=== PATIENT | female | born 1950 | race Caucasian/White ===

== ENCOUNTER 2018-11-19 13:04 | Emergency (ER) | payer OTHER ==
[~2018-11-19] VITALS: Ht 162.6 cm; Wt 63.5 kg
[~2018-11-19 13:04] MED LIST: CYCL10 PO; Super Energy1 EACH PO; TRAM50 PO
[2018-11-19] MEDS ORDERED: CYCL10 PO (15:40)
== END 2018-11-19 15:50 | disposition home or self-care (01) ==
LOC: ER 13:04
DX: M25.551 Pain in right hip (principal); W18.30XA Fall on same level, unspecified, initial encounter; Z88.8 Allergy status to other drugs, medicaments and biological substances; Z88.5 Allergy status to narcotic agent; Z91.018 Allergy to other foods; Z79.899 Other long term (current) drug therapy
CPT/HCPCS: 72192; 73502; 96374; 96375; 99284-25; J2405; J3010

== ENCOUNTER 2020-07-24 13:56 | Inpatient (IN) | payer MEDICARE, OTHER ==
[~2020-07-24] VITALS: Ht 172.7 cm; Wt 56.7 kg
[2020-07-24 15:49] LABS: BASOPHILS ABSOLUTE AUTO 0.05 K/mm3 (0.00-0.23); BASOPHILS PERCENT AUTO 1 % (0-2); EOSINOPHILS ABSOLUTE AUTO 0.04 K/mm3 (0.00-0.68); EOSINOPHILS PERCENT AUTO 0 % (0-6); Hematocrit 37.9 % (33.0-51.0); Hemoglobin 12.4 g/dL (11.5-16.0); IMMATURE GRAN ABSOLUTE AUTO 0.05 K/mm3 (0.00-0.10); IMMATURE GRAN PERCENT AUTO 1 % (0-1); LYMPHOCYTES ABSOLUTE AUTO 0.86 K/mm3 (0.84-5.20); LYMPHOCYTES PERCENT AUTO 8 % (21-46); MONOCYTES ABSOLUTE AUTO 0.46 K/mm3 (0.16-1.47); MONOCYTES PERCENT AUTO 4 % (4-13); Mean Corpuscular HGB 28.8 pg (26.0-34.0); Mean Corpuscular HGB Conc 32.7 g/dL (31.5-36.5); Mean Corpuscular Volume 88 fL (80-100); Mean Platelet Volume 11.7 fL (9.1-12.4); NEUTROPHILS ABSOLUTE AUTO 9.57 K/mm3 (1.96-9.15); NEUTROPHILS PERCENT AUTO 87 % (41-73); Platelet Count 215 K/mm3 (150-400); RDW Standard Deviation 42.1 fL (35.1-46.3); Red Blood Cell Count 4.31 M/mm3 (3.80-5.20); White Blood Cell Count 11.03 K/mm3 (4.00-11.30)
[2020-07-24 16:00] LABS: Alanine Aminotransfer (ALT/SGP 23 U/L (12-78); Albumin, Blood 3.6 g/dL (3.4-5.0); Albumin/Globulin Ratio 1.1 (0.8-1.8); Alk Phos 84 U/L (50-136); Anion Gap 5 mmol/L (6-16); Aspartate Aminotrans (AST/SGOT 21 U/L (12-37); Bilirubin, Total 0.5 mg/dL (0.1-1.0); Blood Urea Nitrogen 8 mg/dL (8-24); Bun/Creatinine Ratio 10.3 (12.0-20.0); CO2, Blood 29 mmol/L (21-32); Calcium, Blood 8.5 mg/dL (8.5-10.1); Chloride, Blood 105 mmol/L (98-108); Creatinine, Blood 0.78 mg/dL (0.40-1.00); Globulin, Blood 3.2 g/dL (2.2-4.0); Glomerular Filtration Rate >60 (60-); Glucose, Blood 136 mg/dL (70-99); Potassium, Blood 2.7 mmol/L (3.5-5.5); Sodium, Blood 139 mmol/L (136-145); Total Protein, Blood 6.8 g/dL (6.4-8.2)
[2020-07-24 16:03] LABS: Prothrombin Time Results 10.8 Sec (9.7-11.5)
--- NOTE | 2020-07-24 21:01 | NUR ---
ADMIT NOTE PT ADMIT TO UNIT FROM ER. GROUND LEVEL FALL AT HOME. LEFT WRIST AND FEMUR FRACTURE. PLAN FOR SURGERY TOMORROW. BEDREST AND LEFT WRIST IN SPLINT AND SLING. MEDICATED FOR PAIN PER EMAR. PT WAS REFUSING COVID TEST AND NICK AT ADMIT. ALERT AND ORIENTED. POTASSIUM WAS LOW IN ER SO IV POTASSIUM RUNNING IN FLUID. REPORT GIVEN TO NEXT SHIFT.
[2020-07-24 21:36] LABS: Source, Urine Catheter
[2020-07-24 21:42] LABS: Bilirubin, Urine Neg (Neg); Blood, Urine Neg (Neg); Glucose Qualitative, Urine Neg (Neg); Ketones, Urine 2+ (Neg); Leukocyte Esterase, Urine Neg (Neg); Nitrite, Urine Neg (Neg); Protein, Urine Neg (Neg); Specific Gravity, Urine 1.015 (1.003-1.022); Urobilinogen, Urine NORM (Normal)
[2020-07-24 21:53] LABS: Appearance, Urine Clear (Clear); Color, Urine Yellow (P-Yellow)
[2020-07-24 23:46] LABS: Influenza A, PCR NEGATIVE (NEGATIVE); Influenza B, PCR NEGATIVE (NEGATIVE); Resp Syncytial Virus, PCR NEGATIVE (NEGATIVE); SARS-Cov-2 (COVID-19) PCR, MMC NEGATIVE (NEGATIVE)
--- NOTE | 2020-07-25 04:25 | NUR ---
SHIFT SUMMARY: PT A&O X4. VS WNL THROUGHOUT SHIFT. PT HAS BEEN NPO SINCE MIDNIGHT FOR POSSIBLE SURGERY TODAY. PAIN BEING MANAGED WITH 25MCG OF FENTANYL Q2 PER EMAR. NICK CATHETER PLACED PER ORDERS WITH 1000CC CLEAR YELLOW URINE EMPTIED. COVID TEST COMPLETE. IVF INFUSING PER EMAR.
[2020-07-25 04:56] LABS: Alanine Aminotransfer (ALT/SGP 13 U/L (12-78); Albumin, Blood 2.9 g/dL (3.4-5.0); Albumin/Globulin Ratio 1.1 (0.8-1.8); Alk Phos 66 U/L (50-136); Anion Gap 5 mmol/L (6-16); Aspartate Aminotrans (AST/SGOT 8 U/L (12-37); Bilirubin, Total 0.8 mg/dL (0.1-1.0); Blood Urea Nitrogen 10 mg/dL (8-24); Bun/Creatinine Ratio 13.4 (12.0-20.0); CO2, Blood 28 mmol/L (21-32); Calcium, Blood 7.3 mg/dL (8.5-10.1); Chloride, Blood 106 mmol/L (98-108); Creatinine, Blood 0.75 mg/dL (0.40-1.00); Globulin, Blood 2.7 g/dL (2.2-4.0); Glomerular Filtration Rate >60 (60-); Glucose, Blood 97 mg/dL (70-99); Magnesium, Blood 1.6 mg/dL (1.6-2.4); Potassium, Blood 3.1 mmol/L (3.5-5.5); Sodium, Blood 139 mmol/L (136-145); Total Protein, Blood 5.6 g/dL (6.4-8.2)
--- NOTE | 2020-07-25 11:26 | NUR ---
Patient immediately tells me about the fall that led to her broken bones. She then talks at length about her [employer] chris and how God has helped her and her spouse through some very difficult times. She has a son with cerebral palsy, and parents that they have had to take care of until their deaths and there have been many accidents a tragedies. She continues to thank and praise God through all of it and he has given them what they need to make it through and have yeyo in the process. I reinforce helpful attitudes and practices and provide scripture recitation and prayer. Patient responds well and shows signs of increased peace and being encouraged in her chris.
--- NOTE | 2020-07-25 14:25 | NUR ---
PT TO OR AT APROX 1400
--- NOTE | 2020-07-25 14:56 | NUR ---
History, Chart, Medications and Allergies reviewed before start of procedure.Lungs clear T/O to Auscultation. Patient confirms NPO status and agrees with scheduled surgery. ALL BELONINGS LEFT IN ROOM.
[2020-07-26 04:30] LABS: BASOPHILS ABSOLUTE AUTO 0.01 K/mm3 (0.00-0.23); BASOPHILS PERCENT AUTO 0 % (0-2); EOSINOPHILS PERCENT AUTO 0 % (0-6); Hematocrit 29.1 % (33.0-51.0); Hemoglobin 9.5 g/dL (11.5-16.0); IMMATURE GRAN ABSOLUTE AUTO 0.05 K/mm3 (0.00-0.10); IMMATURE GRAN PERCENT AUTO 1 % (0-1); LYMPHOCYTES ABSOLUTE AUTO 0.46 K/mm3 (0.84-5.20); LYMPHOCYTES PERCENT AUTO 4 % (21-46); MONOCYTES ABSOLUTE AUTO 0.33 K/mm3 (0.16-1.47); MONOCYTES PERCENT AUTO 3 % (4-13); Mean Corpuscular HGB 28.5 pg (26.0-34.0); Mean Corpuscular HGB Conc 32.6 g/dL (31.5-36.5); Mean Corpuscular Volume 87 fL (80-100); Mean Platelet Volume 11.8 fL (9.1-12.4); NEUTROPHILS PERCENT AUTO 92 % (41-73); Platelet Count 158 K/mm3 (150-400); RDW Coefficient Variation 12.8 % (11.7-14.2); RDW Standard Deviation 40.9 fL (35.1-46.3); Red Blood Cell Count 3.33 M/mm3 (3.80-5.20); White Blood Cell Count 10.45 K/mm3 (4.00-11.30)
[2020-07-26 04:49] LABS: Albumin, Blood 2.6 g/dL (3.4-5.0); Anion Gap 8 mmol/L (6-16); Blood Urea Nitrogen 13 mg/dL (8-24); Bun/Creatinine Ratio 16.9 (12.0-20.0); CO2, Blood 24 mmol/L (21-32); Calcium, Blood 7.2 mg/dL (8.5-10.1); Chloride, Blood 106 mmol/L (98-108); Creatinine, Blood 0.77 mg/dL (0.40-1.00); Glomerular Filtration Rate >60 (60-); Glucose, Blood 110 mg/dL (70-99); Phosphorus, Blood 3.4 mg/dL (2.5-4.9); Potassium, Blood 3.2 mmol/L (3.5-5.5); Sodium, Blood 138 mmol/L (136-145)
--- NOTE | 2020-07-26 05:40 | NUR ---
SHIFT SUMMARY POD#1 LEFT [place] HIP ARTHROPLASTY + LEFT DISTAL RADIUS ORIF. AAOX4. DISCOMFORT CONTROLLED WITH TORADOL PER ORDERS. MILD NAUSEA CONTROLLED WITH X1 ZOFRAN, NO EMESIS. VSS. ON RA. MOVES TOES + FINGERS WELL BUE + BLE. CAP REFILL BRISK, DENIES N/T ALL EXTREMITIES. PT RESTED WELL T/O NIGHT. CURRENTLY PT RESTING IN BED WITH CALL LIGHT IN REACH.
--- NOTE | 2020-07-26 16:16 | NUR ---
07/26/20 1616 Natalia Tomlinson VERIFICATIONS: EDIT CHART.
--- NOTE | 2020-07-26 16:55 | NUR ---
SHIFT SUMMARY PT POD 1 L [place] HIP AND ORIF L HUMERUS. AQUACEL DRESSING TO L HIP C/D/I. ARTUR WRAP WITH SPLINT TO L ARM C/D/I. SOME INCREASED SWELLING TO L HAND, ELEVATED ON 2 PILLOWS. PT LOST IV ACCESS, REFUSES NEW IV START AT THIS TIME. DUE TO MULTIPLE ALLERGIES AND CONCERNS WITH MEDICATION INGREDIENTS PT HAS BEEN MEDICATED WITH TYLENOL FOR PAIN. PT WORKED WITH PT/OT, UP TO CHAIR T/O SHIFT.
--- NOTE | 2020-07-26 21:31 | NUR ---
PT AGREES TO AllOW STUDENT TO PARTICIPATE IN CARE
[2020-07-27 04:52] LABS: BASOPHILS ABSOLUTE AUTO 0.05 K/mm3 (0.00-0.23); BASOPHILS PERCENT AUTO 1 % (0-2); EOSINOPHILS ABSOLUTE AUTO 0.37 K/mm3 (0.00-0.68); EOSINOPHILS PERCENT AUTO 5 % (0-6); Hematocrit 28.8 % (33.0-51.0); Hemoglobin 9.6 g/dL (11.5-16.0); IMMATURE GRAN ABSOLUTE AUTO 0.02 K/mm3 (0.00-0.10); IMMATURE GRAN PERCENT AUTO 0 % (0-1); LYMPHOCYTES ABSOLUTE AUTO 0.93 K/mm3 (0.84-5.20); LYMPHOCYTES PERCENT AUTO 12 % (21-46); MONOCYTES ABSOLUTE AUTO 0.61 K/mm3 (0.16-1.47); MONOCYTES PERCENT AUTO 8 % (4-13); Mean Corpuscular HGB 28.6 pg (26.0-34.0); Mean Corpuscular HGB Conc 33.3 g/dL (31.5-36.5); Mean Corpuscular Volume 86 fL (80-100); Mean Platelet Volume 11.3 fL (9.1-12.4); NEUTROPHILS ABSOLUTE AUTO 5.85 K/mm3 (1.96-9.15); NEUTROPHILS PERCENT AUTO 75 % (41-73); Platelet Count 161 K/mm3 (150-400); RDW Standard Deviation 40.1 fL (35.1-46.3); Red Blood Cell Count 3.36 M/mm3 (3.80-5.20); White Blood Cell Count 7.83 K/mm3 (4.00-11.30)
[2020-07-27 05:35] LABS: Alanine Aminotransfer (ALT/SGP 13 U/L (12-78); Albumin, Blood 2.7 g/dL (3.4-5.0); Albumin/Globulin Ratio 0.9 (0.8-1.8); Alk Phos 58 U/L (50-136); Anion Gap 5 mmol/L (6-16); Aspartate Aminotrans (AST/SGOT 26 U/L (12-37); Bilirubin, Total 0.8 mg/dL (0.1-1.0); Blood Urea Nitrogen 16 mg/dL (8-24); Bun/Creatinine Ratio 21.8 (12.0-20.0); CO2, Blood 28 mmol/L (21-32); Calcium, Blood 7.9 mg/dL (8.5-10.1); Chloride, Blood 103 mmol/L (98-108); Creatinine, Blood 0.74 mg/dL (0.40-1.00); Ferritin, Serum 80 ng/mL (8-252); Globulin, Blood 2.9 g/dL (2.2-4.0); Glomerular Filtration Rate >60 (60-); Glucose, Blood 107 mg/dL (70-99); Iron Serum 20 ug/dL (50-170); Percent Saturation 6.9 % (15.0-50.0); Potassium, Blood 3.3 mmol/L (3.5-5.5); Sodium, Blood 136 mmol/L (136-145); Total Iron Binding Capacity 289 ug/dL (250-450); Total Protein, Blood 5.6 g/dL (6.4-8.2)
--- NOTE | 2020-07-27 05:36 | NUR ---
shift summary: left lencho arthroplasty partial wt bearing, left distal radial orif non wt bearing PT is A&OX4 1p assist oob brp w/fww, pt reported difficulty swallowing medications requested medications be broken into small pieces, left hand slight edema with diffuse discoloring to thumb bruising to elbow, able move fingers toes cap refill <3 secs. all extremities, pain at tolerable level,lungs clear all ga, bowel sounds active in all 4 quadrants,hob@30 and left arm and left leg elevated, call nolen within reach resting well
[2020-07-27 11:28] LABS: Free Thyroxine 1.53 ng/dL (0.70-1.60); Triiodothyronine, Free 2.23 pg/mL (2.18-3.98)
--- NOTE | 2020-07-27 17:39 | NUR ---
SHIFT SUMMARY: POD2 L [place] HIP ARTHOPLASTY AND L DISTAL RADIUS ORIF. AQUACEL C/D/I TO L HIP, WBAT. SPLINT W/ ARTUR WRAP TO L WRIST, NWB. NO IV ACCESS DUE TO PT REMOVAL AND REFUSAL OF A NEW ONE. VSS. PT HAS NUMEROUS FOOD ALLERGIES AND IS ON A GLUTEN FREE DIET DUE TO CELIAC DISEASE, SPOUSE HAS BROUGHT FOOD SPECIFIC TO PT. PAIN MANAGED W TYLENOL AND TRAMADOL. MILD SWELLING AND BRUISING TO L WRIST/HAND. PT HAD DIFFICULTY W BOWELS, DECLINED BOWEL CARE THIS MORNING AND ONLY WANTED SUPPOSITORY ORDERED. SUPPOSITORY WAS ADMINISTERED. PT WAS SUCCESSFUL IN HAVING A BOWEL MOVEMENT, BROWN SOFT FORMED. PT COMPLIANT WITH OT & PT. CALL LIGHT WITHIN REACH.
--- NOTE | 2020-07-28 06:26 | NUR ---
SHIFT SUMMARY POD3 L [place] HIP, [place] PO, VOIDING, AMBULATING, BM YESTERDAY PER REPORT. PAIN WELL MANAGED PER EMAR, NO ACUTE EVENTS THIS SHIFT. CALL LIGHT IN REACH, WILL CONTINUE TO MONITOR AND REPORT TO ONCOMING DAY RN.
[2020-07-28] MEDS ORDERED: ACET500 PO (11:38)
[2020-07-28] MEDS ORDERED: DOCU100 PO (11:39)
[2020-07-28] MEDS ORDERED: ENOX40I SC (11:39)
[2020-07-28] MEDS ORDERED: BISA10S PR (11:39)
[2020-07-28] MEDS ORDERED: TRAM50 PO (11:40)
[2020-07-28] MEDS ORDERED: MIRALAX17 G3 PO (11:40)
--- NOTE | 2020-07-28 15:27 | NUR ---
DISCHARGE: PT RECEIVED WALKER WITH SUPPORT FOR L ARM. DISCHARGE PACKET PRINTED AND PT/PT EDUCATED. PT GIVEN SCRIPTS AND MEDS FAXED TO [facility] ON [address]. PT ALSO GIVEN EXTRA AQUCEL DRESSINGS. PT AND PT LEFT UNIT VIA WHEELCHAIR AT ABOUT 1500 WITH CL DIAZ.
== END 2020-07-28 15:20 | disposition home or self-care (01) | DRG 469 ==
LOC: ER 13:56 → SURS 17:23
PROVIDERS: Emergency Medicine; Internal Medicine; Nurse Practitioner Acute Care; Orthopaedic Surgery; ADMIT Family Medicine
PROC: 0SRS0JA Replacement of Left Hip Joint, Femoral Surface with Synthetic Substitute, Uncemented, Open Approach (ICD-10-PCS; principal; 2020-07-25 16:00)
PROC: 0PSJ04Z Reposition Left Radius with Internal Fixation Device, Open Approach (ICD-10-PCS; 2020-07-25 16:00)
DX: S52.612A Displaced fracture of left ulna styloid process, initial encounter for closed fracture (principal); S72.032A Displaced midcervical fracture of left femur, initial encounter for closed fracture; Z20.822 Contact with and (suspected) exposure to COVID-19; S52.572A Other intraarticular fracture of lower end of left radius, initial encounter for closed fracture; E87.6 Hypokalemia; K59.09 Other constipation; D50.9 Iron deficiency anemia, unspecified; Z86.718 Personal history of other venous thrombosis and embolism; Z91.018 Allergy to other foods; Z98.890 Other specified postprocedural states; W01.198A Fall on same level from slipping, tripping and stumbling with subsequent striking against other object, initial encounter; Y92.007 Garden or yard of unspecified non-institutional (private) residence as the place of occurrence of the external cause
CPT/HCPCS: 0241U; 29125; 36415; 70450; 71045; 72125; 72170; 73110; 73502; 73700; 80053; 80069; 81003; 82607; 82728; 82746; 83540; 83550; 83735; 84439; 84443; 84481; 85025; 85610; 86850; 86900; 86901; 93005; 93010; 96374-59; 96375-59; 97110; 97116; 97162; 97166; 97530; 97535; 99285-25; A9270; C1713; C1776; J0171; J0690; J0735; J1100; J1650; J1885; J2370; J2405; J2704; J2795; J3010; J3480; J7030; J7120